=== PATIENT | female | born 1975 | race Two or more races ===

== ENCOUNTER 2019-08-21 09:39 | Emergency (ER) | payer OTHER ==
[~2019-08-21] VITALS: Ht 170.2 cm; Wt 97.5 kg
== END 2019-08-21 11:13 | disposition home or self-care (01) ==
LOC: ER 09:39
DX: R19.7 Diarrhea, unspecified (principal); F06.4 Anxiety disorder due to known physiological condition

== ENCOUNTER 2020-05-31 00:41 | Emergency (ER) | payer OTHER ==
[~2020-05-31] VITALS: Ht 172.7 cm; Wt 104.3 kg
[2020-05-31] MEDS ORDERED: MEDROLPACK PO (04:18)
[2020-05-31] MEDS ORDERED: BENADRYL ALLERG25 MG PO (04:18)
== END 2020-05-31 04:27 | disposition home or self-care (01) ==
LOC: ER 00:41
DX: M79.632 Pain in left forearm (principal); T50.Z95A Adverse effect of other vaccines and biological substances, initial encounter